=== PATIENT | female | born 1995 | race Two or more races ===

== ENCOUNTER 2017-05-07 17:27 | Emergency (ER) | payer SELFPAY ==
[~2017-05-07] VITALS: Ht 160 cm; Wt 76.2 kg
[2017-05-07 17:35] VITALS: BP 121/65
--- NOTE | 2017-05-07 18:07 | PHYS DOC ---
Past Medical History Past Medical History: No Pertinent History Past Surgical History: No Surgical History Alcohol Use: None Drug Use: None Adult General Chief Complaint Chief Complaint: Congestion HPI HPI Patient is a 22 year old female whom is 33 weeks () presents to the ED complaining sinus infection 2 days. Patient states she has been seen in the hospital on 05/04/17 and was treated outpatient with Augmentin for an ear infection by her [employer]. Patient states she came in because she thinks she has a sinus infection and was unsure what to take. States her ear pain is improved. Pain to right maxillary sinus area. States she's been doing saline rinses. Denies any related symptoms, chest pain, shortness of breath, cough, nausea/vomiting, diarrhea, blood in stool, weakness, vaginal discharge/ bleeding, dysuria, headache or fever. Review of Systems Review of Systems Constitutional: Denies fever or chills [] Eyes: Denies change in visual acuity, redness, or eye pain [] HENT: Complains of nasal congestion. Denies sore throat[] Respiratory: Denies cough or shortness of breath [] Cardiovascular: No additional information not addressed in HPI [] GI: Denies abdominal pain, nausea, vomiting, bloody stools or diarrhea [] : Denies dysuria or hematuria [] Musculoskeletal: Denies back pain or joint pain [] Integument: Denies rash or skin lesions [] Neurologic: Denies headache, focal weakness or sensory changes [] Endocrine: Denies polyuria or polydipsia [] All other systems were reviewed and found to be within normal limits, except as documented in this note. Allergies Allergies Allergies Coded Allergies Type Severity Reaction Last Updated Verified No Known Drug Allergies 05/04/17 No Physical Exam Physical Exam Constitutional: Well developed, well nourished, no acute distress, non-toxic appearance. [] HENT: Normocephalic, atraumatic, bilateral external ears normal, oropharynx moist, no oral exudates, nose normal. MILD MAXILLARY SINUS TENDERNESS. [] Eyes: PERRLA, EOMI, conjunctiva normal, no discharge. [] Neck: Normal range of motion, no tenderness, supple, no stridor. [] Cardiovascular:Heart rate regular rhythm, no murmur [] Lungs & Thorax: Bilateral breath sounds clear to auscultation [] Abdomen: Bowel sounds normal, soft, no tenderness, no masses, no pulsatile masses. [] Skin: Warm, dry, no erythema, no rash. [] Back: No tenderness, no CVA tenderness. [] Extremities: No tenderness, no cyanosis, no clubbing, ROM intact, no edema. [] Neurologic: Alert and oriented X 3, normal motor function, normal sensory function, no focal deficits noted. [] Psychologic: Affect normal, judgement normal, mood normal. [] Current Patient Data Vital Signs Vital Signs Date Time Temp Pulse Resp B/P (MAP) Pulse Ox O2 Delivery O2 Flow Rate FiO2 05/07/17 17:35 98.4 98 18 100 Room Air 98.4 EKG EKG [] Radiology/Procedures Radiology/Procedures [] Course & Med Decision Making Course & Med Decision Making Pertinent Labs and Imaging studies reviewed. (See chart for details) []Discussed symptomatic treatment for patient. Patient is currently taking Augmentin. Tylenol helps her pain. Discussed follow-up with [employer] early next week. Discussed reasons to return to the ED. Patient understands and agrees with plan. Mother and sister at bedside. Dragon Disclaimer Dragon Disclaimer This electronic medical record was generated, in whole or in part, using a voice recognition dictation system. Departure Departure Impression: Primary Impression: Sinusitis Disposition: 01 HOME, SELF-CARE Condition: IMPROVED Referrals: NO PCP (PCP) Patient Instructions: Sinusitis Additional Instructions: [employer]: ALPHONSO Mclean May 07, 2017 18:07
== END 2017-05-07 18:14 | disposition home or self-care (01) ==
LOC: ER 17:27
DX: O99.513 Diseases of the respiratory system complicating pregnancy, third trimester (principal); J32.0 Chronic maxillary sinusitis; Z3A.33 33 weeks gestation of pregnancy
CPT/HCPCS: 99281